=== PATIENT | male | born 1935 | race Caucasian/White ===

== ENCOUNTER 2021-05-09 20:20 | Emergency (ER) | payer MEDICARE ==
[~2021-05-09] VITALS: Ht 182.9 cm; Wt 67.1 kg
[2021-05-09 21:55] VITALS: BP 149/76
--- NOTE | 2021-05-09 21:55 | NUR ---
Patient discharged to home in stable condition. Written and verbal after care instructions given. Patient verbalizes understanding of instruction. Pt ambulatory with a steady gait
--- NOTE | 2021-05-09 21:55 | NUR ---
Patient discharged to home in stable condition. Written and verbal after care instructions given. Patient verbalizes understanding of instruction. Pt ambulatory with a steady gait
== END 2021-05-09 21:56 | disposition home or self-care (01) ==
LOC: ER 20:26
DX: S50.12XA Contusion of left forearm, initial encounter (principal); S09.8XXA Other specified injuries of head, initial encounter; I48.91 Unspecified atrial fibrillation; W18.39XA Other fall on same level, initial encounter; Y93.89 Activity, other specified; Y92.89 Other specified places as the place of occurrence of the external cause; Y99.8 Other external cause status
CPT/HCPCS: 70450-TC